=== PATIENT | female | born 1985 | race American Indian/Alaskan Native ===

== ENCOUNTER 2017-06-26 19:24 | Emergency (ER) | payer MEDICAID ==
[2017-06-26 19:25] VITALS: BMI 31.0
[2017-06-26 20:38] VITALS: PULSE 78; TEMP 99
[2017-06-26] MEDS ORDERED: Sodium Chloride 0.9% 1,000 ML IV STA (20:41)
[2017-06-26 21:13] LABS: BASO # 0.02 K/mm3 (0.0-2.0); BASO % 0.3 % (0.0-3.0); EOS # 0.1 (0.0-0.7); EOS % 1.4 % (1.5-5.0); GRAN # 5.28 (1.4-6.5); GRAN % 66.7 % (50.0-68.0); HEMOGLOBIN 12.1 g/dL (12.0-16.0); LYMPH % 25.2 % (22.0-35.0); MEAN CELL VOLUME 83.9 fl (80.0-105.0); MEAN CORPUSCULAR HEMOGLOBIN 27.5 pg (25.0-35.0); MEAN CORPUSCULAR HGB CONC 32.8 g/dl (31.0-37.0); MEAN PLATELET VOLUME 10.6 fl (7.0-11.0); MONO # 0.5 (0.1-0.6); MONO % 6.4 % (1.0-6.0); RBC 4.4 10^6/uL (3.5-6.1); RED CELL DISTRIBUTION WIDTH 13.4 % (11.5-14.5); URINE BILIRUBIN NEGATIVE (NEGATIVE); URINE BLOOD TRACE-INTACT (NEGATIVE); URINE GLUCOSE (UA) NEGATIVE (NEGATIVE); URINE LEUKOCYTE ESTERASE NEGATIVE Leu/uL (NEGATIVE); URINE NITRATE NEGATIVE (NEGATIVE); URINE PROTEIN NEGATIVE mg/dL (<30 mg/dL); URINE UROBILINOGEN 0.2 E.U./dL (<1 E.U./dL); WHITE BLOOD COUNT 7.9 10^3/ul (4.5-11.0)
[2017-06-26 21:18] LABS: URINE APPEARANCE CLEAR (CLEAR); URINE COLOR YELLOW (YELLOW)
[2017-06-26 21:21] LABS: ALB/GLOB RATIO 1.3 (1.1-1.8); ALBUMIN 4.1 g/dL (3.0-4.8); ALT/SGPT 32 U/L (7-56); AMYLASE 61 U/L (35-125); AST/SGOT 26 U/L (14-36); BLOOD UREA NITROGEN 11 mg/dL (7-21); CALCIUM 9.8 mg/dL (8.4-10.5); GFR AFRICAN-AMERICAN > 60; GFR NON-AFRICAN AMERICAN > 60; LIPASE 196 U/L (23-300)
[2017-06-26 21:51] LABS: URINE EPITHELIAL CELLS 0 - 2 /hpf (0-5); URINE RBC 0 - 2 /hpf (0-2); URINE WBC 0 - 2 /hpf (0-6)
--- NOTE | 2017-06-26 23:22 | US ---
EXAM: US , Transvaginal CLINICAL HISTORY: 31 years old, female; Pain; complicated by abdominal or pelvic pain; Lower; First trimester; Gestational age or lmp: 05/06/2017; ; Additional info: Pain + test TECHNIQUE: Real-time transvaginal obstetrical ultrasound of the maternal pelvis and a first trimester with image documentation. Transvaginal imaging was used for better evaluation of the fetus and adnexa. COMPARISON: No relevant prior studies available. FINDINGS: Gestation: The uterus is anteverted. Twin gestational sac. sac, pole, and cardiac motion noted bilaterally. The estimated menstrual age pole and a 7 weeks 1 day. Estimated menstrual age pole B. is 7 weeks 2 days. Uterus/cervix: Uterus measures 12.2 x 7.5 x 8.4 CM. in No myometrial mass. Ovaries: Right ovary measures 4.2 x 2.7 x 4.4 CM. Multiple cysts. Normal blood flow. Left ovary measures 4.4 x 1.9 x 3.4 CM. Normal blood flow. Cyst. No mass. Free fluid: No free fluid IMPRESSION: Twin at approximately 7 weeks 1 day menstrual age, with cardiac activity.
--- NOTE | 2017-06-27 01:26 | ED PDOC ---
Arrival/HPI - History of Present Illness Symptom Onset: Gradual <Sarah Perez - Last Filed: 06/27/17 01:22> <Norberto Kay - Last Filed: 06/27/17 01:55> - General Chief Complaint: Abdominal Pain Time Seen by Provider: 06/26/17 20:41 - History of Present Illness Narrative History of Present Illness (Text): 06/27/17 01:30 31-year-old female presents today with a four-day history of abdominal pain. Patient denies vomiting or diarrhea. Denies chest pain or shortness of breath. Patient denies dizziness or weakness. Patient states she is unsure if she is as she hasn't had her period for a month and feels like her breasts are swollen. Patient states she's been feeling very gassy lately. No urinary symptoms. Patient denies back pain. No medications have been taken at home. No other complaints (Sarah Perez) Past Medical History - Provider Review Nursing Documentation Reviewed: Yes - Travel History Have you recently traveled outside [place] w/in the past 3 mons?: No - Past History Past History: No Previous - Infectious Disease Hx of Infectious Diseases: None - Tetanus Immunization Tetanus Immunization: Unknown - Past Medical History Past Medical History: No Previous - Cardiac Hx Cardiac Disorders: No - Pulmonary Hx Respiratory Disorders: No - Neurological Hx Neurological Disorder: No - HEENT Hx HEENT Disorder: No - Renal Hx Renal Disorder: No - Endocrine/Metabolic Hx Endocrine Disorders: Yes Other/Comment: hypoglycemia 1 episode - Hematological/Oncological Hx Blood Disorders: Yes Hx Anemia: Yes (iron pills) - Integumentary Hx Dermatological Disorder: No - Musculoskeletal/Rheumatological Hx Musculoskeletal Disorders: Yes Hx Back Pain: Yes - Gastrointestinal Hx Gastrointestinal Disorders: No - Genitourinary/Gynecological Hx Genitourinary Disorders: No - Psychiatric Hx Psychophysiologic Disorder: No Hx Depression: No Hx Emotional Abuse: No Hx Physical Abuse: No Hx Substance Use: No - Past Surgical History Past Surgical History: No Previous - Surgical History Hx Orthopedic Surgery: Yes (TOE) - Anesthesia Hx Anesthesia: Yes Hx Anesthesia Reactions: No Hx Malignant Hyperthermia: No - Suicidal Assessment Feels Threatened In Home Enviroment: No <Sarah Perez - Last Filed: 06/27/17 01:22> Family/Social History - Physician Review Nursing Documentation Reviewed: Yes Family/Social History: Unknown Family HX Smoking Status: Never Smoked Hx Alcohol Use: Yes Hx Substance Use: No Hx Substance Use Treatment: No <Sarah Perez - Last Filed: 06/27/17 01:22> Allergies/Home Meds <Sarah Perez - Last Filed: 06/27/17 01:22> <RahulNorberto - Last Filed: 06/27/17 01:55> Allergies/Adverse Reactions: Allergies Sulfa (Sulfonamide Antibiotics) Allergy (Verified 06/26/17 20:41) URTICARIA Review of Systems - Review of Systems Constitutional: absent: Fatigue, Fevers Respiratory: absent: SOB, Cough Cardiovascular: absent: Chest Pain, Palpitations Gastrointestinal: Abdominal Pain. absent: Constipation, Diarrhea, Nausea, Vomiting Genitourinary Female: absent: Dysuria, Frequency, Hematuria Musculoskeletal: absent: Arthralgias, Back Pain, Neck Pain Skin: absent: Rash, Pruritis, Other Neurological: absent: Headache, Dizziness Psychiatric: absent: Anxiety, Depression, Suicidal Ideation <Sarah Perez - Last Filed: 06/27/17 01:22> Physical Exam Vital Signs Reviewed: Yes Temperature: Afebrile Blood Pressure: Normal Pulse: Regular Respiratory Rate: Normal Appearance: Positive for: Well-Appearing, Non-Toxic, Comfortable Pain Distress: None Mental Status: Positive for: Alert and Oriented X 3 - Systems Exam Head: Present: Atraumatic Mouth: Present: Moist Mucous Membranes Neck: Present: Normal Range of Motion Respiratory/Chest: Present: Clear to Auscultation, Good Air Exchange. No: Respiratory Distress, Accessory Muscle Use Cardiovascular: Present: Regular Rate and Rhythm, Normal S1, S2. No: Murmurs Abdomen: Present: Tenderness (minimal lower abdominal tenderness; ). No: Distention, Rebound, Guarding Genitourinary/Pelvic Exam: Present: Other (pt refused examination) Back: Present: Normal Inspection. No: CVA Tenderness, Midline Tenderness, Paraspinal Tenderness Upper Extremity: Present: Normal ROM Lower Extremity: Present: Normal ROM Neurological: Present: GCS=15, Speech Normal Skin: Present: Warm, Dry, Normal Color. No: Rashes Psychiatric: Present: Alert, Oriented x 3 <Sarah Perez - Last Filed: 06/27/17 01:22> Vital Signs Temp Pulse Resp BP Pulse Ox 06/27/17 01:30 78 17 110/60 99 06/26/17 20:37 99.0 F 78 18 103/69 100 Medical Decision Making Reassessment Condition: Re-examined, Improved <Sarah Perez - Last Filed: 06/27/17 01:22> <Norberto Kay - Last Filed: 06/27/17 01:55> ED Course and Treatment: 06/27/17 01:31 Patient is nontoxic well appearing in no distress. vitals are stable. CBC: wnl CMP: wnl Beta hC TYPE AND SCREEN: B+ Urinalysis: wnl Ultrasound: FINDINGS: Gestation: The uterus is anteverted. Twin gestational sac. sac, pole, and cardiac motion noted bilaterally. The estimated menstrual age pole and a 7 weeks 1 day. Estimated menstrual age pole B. is 7 weeks 2 days. Uterus/cervix: Uterus measures 12.2 x 7.5 x 8.4 CM. in No myometrial mass. Ovaries: Right ovary measures 4.2 x 2.7 x 4.4 CM. Multiple cysts. Normal blood flow. Left ovary measures 4.4 x 1.9 x 3.4 CM. Normal blood flow. Cyst. No mass. Free fluid: No free fluid IMPRESSION: Twin at approximately 7 weeks 1 day menstrual age, with cardiac activity. Discussed all the results the patient. advised f/u with the drop hammer operator helper within the next 2 days. advised immediate return if symptoms worsen,persist or if new symptoms develop. Patient verbalizes understanding of discharge instructions and need for immediate followup. all aspects of this case were discussed the attending of record. Impression: abdominal pain, twin , threatened Tylenol every 4 hours as needed for pain Increase fluids Followup with the law firm consultant within the next 2 days Return immediately if symptoms worsen persist or if new symptoms develop: High fevers, heavy bleeding, severe abdominal pain, vomiting, diarrhea, dizziness or weakness or any other concerning symptoms develop. take vitamins daily (Sarah Perez) - Lab Interpretations Lab Results: 06/26/17 20:54 06/26/17 20:54 Lab Results 06/27/17 00:40: Blood Type Confirm B POSITIVE 06/27/17 00:10: Blood Type B POSITIVE, Antibody Screen Negative, BBK History Checked No verified bt 06/26/17 21:45: Beta HCG, Quant [id number] H 06/26/17 20:54: WBC 7.9, RBC 4.40, Hgb 12.1, Hct 36.9, MCV 83.9, MCH 27.5, MCHC 32.8, RDW 13.4, Plt Count 248, MPV 10.6, Gran % 66.7, Lymph % (Auto) 25.2, [place] % (Auto) 6.4 H, Eos % (Auto) 1.4 L, Baso % (Auto) 0.3, Gran # 5.28, Lymph # ( Auto) 2.0, [place] # (Auto) 0.5, Eos # (Auto) 0.1, Baso # (Auto) 0.02 06/26/17 20:54: Sodium 137, Potassium 4.0, Chloride 100, Carbon Dioxide 26, Anion Gap 14, BUN 11, Creatinine 0.7, Est GFR ( Amer) > 60, Est GFR (Non- Af Amer) > 60, Random Glucose 80, Calcium 9.8, Total Bilirubin 0.4, AST 26, ALT 32, Alkaline Phosphatase 71, Total Protein 7.4, Albumin 4.1, Globulin 3.3, Albumin/Globulin Ratio 1.3, Amylase 61, Lipase 196 06/26/17 20:54: Urine Color Yellow, Urine Appearance Clear, Urine pH 6.0, Ur Specific [place] >= 1.030, Urine Protein Negative, Urine Glucose (UA) Negative, Urine Ketones Negative, Urine Blood Trace-intact H, Urine Nitrate Negative, Urine Bilirubin Negative, Urine Urobilinogen 0.2, Ur Leukocyte Esterase Negative , Urine RBC 0 - 2, Urine WBC 0 - 2, Ur Epithelial Cells 0 - 2 - RAD Interpretation Radiology Orders: 06/26/17 21:10 OB TRANSVAGINAL [US] Stat - Medication Orders Current Medication Orders: Discontinued Medications Sodium Chloride (Sodium Chloride 0.9%) 1,000 mls @ 999 mls/hr IV .Q1H1M STA Stop: 06/26/17 21:41 Last Admin: 06/26/17 21:44 Dose: 999 mls/hr eMAR Start Stop Document 06/26/17 21:44 IT (Rec: 06/26/17 21:44 IT [facility] [id number]) Intravenous Solution Start Date 06/26/17 Start Time 21:44 End Date 06/26/17 - PA / SAMPLE [employer]OX [employer]KER / Resident Statement / has reviewed & agrees with the documentation as recorded. <RahulNorberto - Last Filed: 06/27/17 01:55> Disposition/Present on Arrival - Present on Arrival Any Indicators Present on Arrival: No History of DVT/PE: No History of Uncontrolled Diabetes: No Urinary Catheter: No History of Decub. Ulcer: No History Surgical Site Infection Following: None - Disposition Have Diagnosis and Disposition been Completed?: Yes Disposition Time: :23 Patient Plan: Discharge <Sarah Perez Ivelisse - Last Filed: 06/27/17 01:22> <RahulNorberto - Last Filed: 06/27/17 01:55> - Disposition Diagnosis: Abdominal pain, Twin , Threatened Disposition: HOME/ ROUTINE Patient Problems: Current Active Problems Problem Status Onset Abdominal pain Acute Threatened Acute Twin Acute Condition: GOOD Discharge Instructions (ExitCare): Acute Abdomen (Belly Pain), Adult (DC), Threatened Miscarriage (DC) Additional Instructions: Tylenol every 4 hours as needed for pain Increase fluids Followup with the law firm consultant within the next 2 days Return immediately if symptoms worsen persist or if new symptoms develop: High fevers, heavy bleeding, severe abdominal pain, vomiting, diarrhea, dizziness or weakness or any other concerning symptoms develop. take vitamins daily Prescriptions: Multivit/Folic Acid/I [ Plus] 1 tab PO DAILY #30 tab Referrals: Rocio Quintero MD [Primary Care Provider] - Follow up with primary Yris Patten MD [Staff Provider] - Follow up with primary Forms: [employer] (Mexican), WORK NOTE
[2017-06-27 01:31] VITALS: BP 110/60; RESP 17; O2SAT 99
== END 2017-06-27 01:30 | disposition home or self-care (01) ==
LOC: ED 19:24
DX: O20.0 Threatened abortion (principal); Z3A.01 Less than 8 weeks gestation of pregnancy; R10.9 Unspecified abdominal pain
CPT/HCPCS: 76817; 80053; 81001; 82150; 83690; 84702; 85025; 86850; 86900; 87086; 99283; J7040